=== PATIENT | male | born 1985 | race Caucasian/White ===

== ENCOUNTER 2018-11-04 05:51 | Day surgery (SDC) | payer BC ==
[~2018-11-04] VITALS: Ht 185.4 cm; Wt 73.2 kg
[2018-11-04 06:47] VITALS: BP 130/71
== END 2018-11-04 12:00 | disposition home or self-care (01) ==
LOC: OUT 05:51
PROVIDERS: ATTEND Orthopaedic Surgery
DX: S83.512A Sprain of anterior cruciate ligament of left knee, initial encounter (principal); S83.222A Peripheral tear of medial meniscus, current injury, left knee, initial encounter; S83.262A Peripheral tear of lateral meniscus, current injury, left knee, initial encounter; M22.42 Chondromalacia patellae, left knee; Z72.89 Other problems related to lifestyle; Z82.49 Family history of ischemic heart disease and other diseases of the circulatory system; X50.1XXA Overexertion from prolonged static or awkward postures, initial encounter; Y93.55 Activity, bike riding; Y92.89 Other specified places as the place of occurrence of the external cause; Y99.8 Other external cause status
CPT/HCPCS: 29883; 29888; 64447; C1713; C1762; J0690; J1100; J1885; J2175; J2250; J2405; J2704; J2795; J3010; J3490; J7120

== ENCOUNTER 2018-11-06 12:03 | Emergency (ER) | payer BC ==
[2018-11-06 12:10] VITALS: BP 128/76
== END 2018-11-06 13:47 | disposition home or self-care (01) ==
LOC: ED 13:29
DX: S62.024A Nondisplaced fracture of middle third of navicular [scaphoid] bone of right wrist, initial encounter for closed fracture (principal); W01.0XXA Fall on same level from slipping, tripping and stumbling without subsequent striking against object, initial encounter; Y93.89 Activity, other specified; Y92.89 Other specified places as the place of occurrence of the external cause; Y99.8 Other external cause status
CPT/HCPCS: 29125; 99283

== ENCOUNTER 2020-03-16 19:32 | Emergency (ER) | payer BC, OTHER ==
[~2020-03-16] VITALS: Ht 185.4 cm; Wt 78.5 kg
[~2020-03-16 19:32] MED LIST: NONE PER PT
--- NOTE | 2020-03-16 20:26 | NUR ---
PT TO ROOM FROM LOBBY
[2020-03-16 20:48] LABS: BASOPHILS % (AUTO) 1 % (0-1); EOSINOPHILS % (AUTO) 4 % (1-7); LYMPHOCYTES % (AUTO) 23 % (22-44); MEAN CORPUSCULAR HEMOGLOBIN 32.1 pg (27.5-34.5); MEAN CORPUSCULAR HGB CONC 35.2 g/dL (33.2-36.2); MEAN PLATELET VOLUME 7.9 fL (7.4-10.4); MONOCYTES % (AUTO) 16 % (2-9); NEUTROPHILS % (AUTO) 57 % (42-75); PLATELET COUNT 189 x10^3/uL (130-400); RED CELL DISTRIBUTION WIDTH 12.5 % (9.4-14.8)
[2020-03-16 20:49] VITALS: BP 118/85
[2020-03-16 20:51] LABS: MD NO
--- NOTE | 2020-03-16 20:53 | NUR ---
pt with cp, loss taste/smell x 3 days. covid test from pending.
[2020-03-16 20:59] LABS: ALBUMIN 4.1 g/dL (3.4-5.0); ANION GAP 4 mmol/L (5-15); CALCIUM 8.8 mg/dL (8.5-10.1); CHLORIDE 107 mmol/L (98-107); CREATININE 1.27 mg/dL (0.7-1.3)
[2020-03-16] MEDS ORDERED: ONDANSETRON ODT 4 MG ONE (21:23)
[2020-03-16] MEDS ORDERED: ONDANSETRON ODT 4 MG PO ONE (21:30)
== END 2020-03-16 21:28 | disposition home or self-care (01) ==
LOC: ED 20:02
DX: J06.9 Acute upper respiratory infection, unspecified (principal); R43.0 Anosmia; R06.02 Shortness of breath; R07.89 Other chest pain; R43.9 Unspecified disturbances of smell and taste
CPT/HCPCS: 36415; 71045; 80048; 82040; 85025; 93005; 99285; Q0162